=== PATIENT | male | born 1975 | race Caucasian/White ===

== ENCOUNTER 2023-07-29 09:25 | Emergency (ER) | payer MEDICAID ==
[2023-07-29] MEDS: Ketorolac 30 MG/ML SDV IM ONE (10:48)
[2023-07-29 10:55] LABS: CORONAVIRUS COVID-19 NAA NEGATIVE (NEGATIVE); INFLUENZA A NAA NEGATIVE (NEGATIVE); INFLUENZA B NAA NEGATIVE (NEGATIVE); RESPIRATORY SYNCYTIAL VIR NAA NEGATIVE (NEGATIVE)
== END 2023-07-29 11:50 | disposition home or self-care (01) ==
LOC: JP.ED 09:25
DX: B34.9 Viral infection, unspecified (principal); F17.210 Nicotine dependence, cigarettes, uncomplicated
CPT/HCPCS: 0241U; 96372; 99283; J1885

== ENCOUNTER 2024-09-08 10:54 | Emergency (ER) | payer SELFPAY ==
[2024-09-08] MEDS: Ketorolac 30 MG/ML SDV IM ONE (11:29)
[2024-09-08] MEDS: Dental Adhesive 1 Tube DENT ONE (11:30)
== END 2024-09-08 11:55 | disposition home or self-care (01) ==
LOC: JP.ED 10:54
DX: K08.89 Other specified disorders of teeth and supporting structures (principal); F17.200 Nicotine dependence, unspecified, uncomplicated
CPT/HCPCS: 96372; 99282; A9270-GY; J1885